=== PATIENT | female | born 1995 | race Two or more races ===

== ENCOUNTER 2023-09-16 15:57 | Emergency (ER) | payer OTHER ==
[~2023-09-16] VITALS: Ht 160 cm; Wt 69.3 kg
[2023-09-16 17:09] VITALS: BP 99/60; PULSE 58; RESP 16; TEMP 98.4; O2SAT 100
[2023-09-16] MEDS: LIDOCAINE 1% HCL (LOCAL ANESTH.) INJ 20ML MDV IJ ONE (17:22)
== END 2023-09-16 17:41 | disposition home or self-care (01) ==
LOC: ER 15:57
DX: S61.412A Laceration without foreign body of left hand, initial encounter (principal); W45.8XXA Other foreign body or object entering through skin, initial encounter; Y93.89 Activity, other specified; Y92.89 Other specified places as the place of occurrence of the external cause; Y99.8 Other external cause status
CPT/HCPCS: 12002; 99282; J2001